=== PATIENT | female | born 1940 | race Caucasian/White ===

== ENCOUNTER 2016-08-22 10:28 | Outpatient (CLI) | payer MEDICARE ==
[2016-08-22 13:49] LABS: ALT (SGPT) 18 U/L (8-55); AST (SGOT) 20 U/L (5-34); Albumin 4.2 g/dL (3.4-4.8); Alkaline Phosphatase 70 U/L (40-150); Anion Gap 18 mmol/L (10-20); BUN (Urea Nitrogen) 13 mg/dL (9.8-20.1); Bilirubin, Direct 0.3 mg/dL (0.1-0.3); Bilirubin, Total 0.8 mg/dL (0.2-1.2); Calc. Creatinine Clearance 0 mL/min (70-130); Carbon Dioxide 25 mmol/L (23-31); Cardiac Risk 3.7 (Less than 4.5); Chloride 98 mmol/L (98-107); Cholesterol 217 mg/dL (< 200 Desired); Estimated GFR-MDRD 75; Glucose 95 mg/dL (83-110); HDL Cholesterol 59 mg/dL (>60 Neg Risk); LDL Cholesterol, Calculated 132 mg/dL; Potassium 4.6 mmol/L (3.5-5.1); Protein, Total 6.8 g/dL (5.8-8.1); Sodium 136 mmol/L (136-145); Triglycerides 129 mg/dL (Less than 150)
[2016-08-22 14:09] LABS: Hemoglobin A1c 5.3 % (4.0-6.0)
[2016-08-22 14:34] LABS: Bilirubin Negative (Negative); Blood, Urine Trace (Negative); Clarity Clear (Clear); Glucose, Urine (Dipstick) Negative (Negative); Leukocyte Negative (Negative); Nitrite Negative (Negative); Protein, Urine (Dipstick) Negative (Neg-Trace); Specific Gravity, Urine 1.015 (1.005-1.030); Urobilinogen 0.2 mg/dL (0.2-1.0); pH, Urine 5.5 (5.0-9.0)
[2016-08-22 14:39] LABS: Band 4 % (5-11); Hemoglobin 13.8 g/dL (12.0-16.0); Lymphocytes 10 % (21-51); MDiff Complete? YES; Mean Corpuscular HGB CONC 33.9 g/dL (32.0-36.0); Mean Corpuscular Hemoglobin 27.6 pg (27.0-31.0); Mean Corpuscular Volume 81.4 fl (81.0-99.0); Mean Platelet Volume 7.3 fL (7.4-10.4); Monocytes 7 % (0-10); Neutrophil 79 % (42-75); PLT Morphology Comment Appears Adequate; Platelet Count 282 thou/uL (130-400); RBC Distribution Width 11.3 % (11.5-14.5); Red Blood Cell (RBC) Count 5.02 mill/uL (4.20-5.40); White Blood Cell (WBC) Count 20.5 thou/uL (4.8-10.8)
[2016-08-22 15:52] LABS: Bacteria/HPF Rare-Few HPF (None Seen); RBC/HPF 0-3 HPF (0-3); Squamous Epithelial 0-3 HPF (0-3); WBC/HPF 0-3 HPF (0-3)
== END 2016-08-22 10:29 | disposition home or self-care (01) ==
LOC: NAVSJIPCSP 10:28
PROVIDERS: ATTEND Family Medicine
DX: I10 Essential (primary) hypertension (principal); E78.00 Pure hypercholesterolemia, unspecified; M81.0 Age-related osteoporosis without current pathological fracture; I73.9 Peripheral vascular disease, unspecified; Z79.899 Other long term (current) drug therapy
CPT/HCPCS: 36415; 80048; 80061; 80076; 81003; 81015; 83036; 84443; 85025

== ENCOUNTER 2016-09-05 13:12 | Outpatient (CLI) | payer MEDICARE ==
[2016-09-05 13:58] LABS: #Basophils 0.1 thou/uL (0.0-0.2); #Eosinphils 0.3 thou/uL (0.0-0.7); #Lymphocytes 2.2 thou/uL (1.20-3.40); #Monocytes 1.2 thou/uL (0.11-0.59); #Neutrophils 7.5 thou/uL (1.40-6.50); %Basophils 1.3 % (0.0-1.0); %Lymphocytes 19.1 % (21.0-51.0); %Monocytes 10.9 % (0.0-10.0); %Neutrophils 65.7 % (42.0-75.0); Hemoglobin 14.5 g/dL (12.0-16.0); Mean Corpuscular HGB CONC 32.4 g/dL (32.0-36.0); Mean Corpuscular Hemoglobin 26.9 pg (27.0-31.0); Mean Corpuscular Volume 83.2 fl (81.0-99.0); Mean Platelet Volume 6.9 fL (7.4-10.4); Platelet Count 321 thou/uL (130-400); RBC Distribution Width 11.8 % (11.5-14.5); Red Blood Cell (RBC) Count 5.38 mill/uL (4.20-5.40); White Blood Cell (WBC) Count 11.4 thou/uL (4.8-10.8)
[2016-09-06 08:10] LABS: Follow-up Hematology Comp? YES; Follow-up Result - Hematology REPORT FAXED
== END 2016-09-05 13:13 | disposition home or self-care (01) ==
LOC: NAV LAB 13:12
PROVIDERS: ATTEND Family Medicine
DX: M81.0 Age-related osteoporosis without current pathological fracture (principal); D72.829 Elevated white blood cell count, unspecified
CPT/HCPCS: 36415; 82306; 85025

== ENCOUNTER 2017-02-08 03:48 | Emergency (ER) | payer MEDICARE ==
[2017-02-08] MEDS ORDERED: Cyclobenzaprine 10 MG TAB ONE (04:12)
[2017-02-08] MEDS ORDERED: methylPREDNISolone Sod Succ/PF 125 MG/2 ML VIAL ONE (04:12)
[2017-02-08] MEDS ORDERED: Ondansetron HCl/PF 4 MG/2 ML Vial ONE (04:53)
--- NOTE | 2017-02-08 07:54 | CT ---
PRELIMINARY REPORT/[facility]/EMERGENCY AFTER HOURS PROCEDURE: EXAM: CT Lumbar Spine Without Intravenous Contrast CLINICAL HISTORY: 76 years old, female; Injury or trauma; Fall; Late effect from previous injury; Blunt trauma (contus ions or hematomas); Injury date: 1 year ago; Injury details: Pt. Fell down a flight of stairs a year ago. TECHNIQUE: Axial computed tomography images of the lumbar spine without intravenous contrast. All CT scans at [facility] use one or more dose reduction techniques, viz.: automated exposure control; ma/kV adju stment per patient size (including targeted exams where dose is matched to indication; i.e. head); o r iterative reconstruction technique. Coronal and sagittal reformatted images were created and reviewed. COMPARISON: CT Pelvis WO Con 2017-02-08 04:45 FINDINGS: Vertebrae: There is a sclerotic focus in the right T12 transverse pedicle. There is a sclerotic focu s in the right aspect of the L2 vertebral body. A small sclerotic focus at the left L5 superior face t. There is a small sclerotic focus at the left aspect of the S1 vertebral body. No acute fracture. Discs/spinal canal/neural foramina: L2-L3 left neural foraminal disc protrusion with mild left neura l foraminal stenosis. L4-L5 small disc bulge and ligamentum flavum hypertrophy with mild spinal sharon l stenosis. Soft tissues: Unremarkable. Vasculature: Right iliac artery stent. Adrenals: There is a 13 mm right adrenal nodule (4 HU), consistent with adenoma. IMPRESSION: 1. No acute lumbar spine fracture or dislocation. 2. Degenerative disc disease, as described above. 3. Multifocal sclerotic foci most likely represent bone islands. Thank you for allowing us to participate in the care of your patient. Dictated and Authenticated by: Kira Chakraborty MD 02/08/2017 5:18 AM Central Time ([place] \T\ [place]) FINAL REPORT CT LUMBAR SPINE WITH CORONAL AND SAGITTAL REFORMATIONS: I agree with the preliminary report given by Dr. Kira Chakraborty of [facility]. POS: [facility]
--- NOTE | 2017-02-08 07:58 | CT ---
PRELIMINARY REPORT/[facility]/EMERGENCY AFTER HOURS PROCEDURE: EXAM: CT Pelvis Without Intravenous Contrast CLINICAL HISTORY: 76 years old, female; Injury or trauma; Fall; Late effect from previous injury; Sprain or strain; Bi lateral; Pelvic region; Injury date: 1 year ago TECHNIQUE: Axial computed tomography images of the pelvis without intravenous contrast. All CT scans at this [facility] use one or more dose reduction techniques, viz.: automated exposure control; ma/kV adjustment per patient size (including targeted exams where dose is matched to indication; i.e. head); or iter ative reconstruction technique. Coronal and sagittal reformatted images were created and reviewed. COMPARISON: No relevant prior studies available. FINDINGS: Bowel: Unremarkable. No obstruction. No mucosal thickening. Appendix: No findings to suggest acute appendicitis. Intraperitoneal space: Unremarkable. No free air. No significant fluid collection. Bladder: Unremarkable. No stones. Reproductive: Unremarkable as visualized. Bones/joints: No acute fracture. No dislocation. Soft tissues: There is a 2.5 cm left periumbilical fat-containing hernia Vasculature: A right external iliac artery stent is present. No lower abdominal aortic aneurysm. Lymph nodes: Unremarkable. No enlarged lymph nodes. IMPRESSION: No acute abnormality. Thank you for allowing us to participate in the care of your patient. Dictated and Authenticated by: Kira Chakraborty MD 02/08/2017 5:06 AM Central Time ([place] \T\ [place]) FINAL REPORT CT PELVIS WITHOUT CONTRAST: I agree with the preliminary report given by Dr. Kira Chakraborty of [facility]. POS: [facility]
== END 2017-02-08 06:10 | disposition home or self-care (01) ==
LOC: NAV ERS 03:48
DX: M51.26 Other intervertebral disc displacement, lumbar region (principal)
CPT/HCPCS: 72131; 72192; 96374; 96375; J2270; J2405; J2930